=== PATIENT | female | born 1955 | race Hispanic/Latino ===

== ENCOUNTER 2018-10-12 21:41 | Emergency (ER) | payer MEDICARE ==
[~2018-10-12] VITALS: Ht 162.6 cm; Wt 78.0 kg
--- OUTSIDE RECORDS SUMMARY | 2018-10-12 21:43 | XMS REPORT ---
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 Allergies, Adverse Reactions, Alerts This patient has no known allergies or adverse reactions. Medications This patient has no known medications. Encounters Start Date/Time End Date/Time Encounter Type Admission Type Attending [facility] Care Department Encounter ID 2018-10-06 00:00:00 2018-10-06 00:00:00 Outpatient [facility] [id number] 2018-08-07 13:43:51 2018-08-07 13:43:51 Outpatient [facility] [id number] 2018-08-07 13:20:38 2018-08-07 13:20:38 Outpatient [facility] [id number] 2018-08-07 09:57:23 2018-08-07 09:57:23 Outpatient [facility] [id number] 2018-07-29 00:00:00 2018-07-29 00:00:00 Outpatient [facility] [id number] 2018-07-21 00:00:00 2018-07-21 00:00:00 Outpatient [facility] [id number] 2018-05-28 00:00:00 2018-05-28 00:00:00 Outpatient [facility] [id number] 2018-05-26 15:26:52 2018-05-26 15:26:52 Outpatient [facility] [id number] 2018-05-26 14:49:35 2018-05-26 14:49:35 Outpatient [facility] [id number] 2018-04-06 14:31:29 2018-04-06 14:31:29 Outpatient [facility] [id number] 2018-04-06 13:57:03 2018-04-06 13:57:03 Outpatient [facility] [id number] 2018-03-31 14:01:10 2018-03-31 14:01:10 Outpatient [facility] [id number] 2018-03-31 12:53:15 2018-03-31 12:53:15 Outpatient [facility] [id number] 2018-03-05 09:41:32 2018-03-05 09:41:32 Outpatient [facility] [id number] 2018-01-31 08:53:39 2018-01-31 08:53:39 Outpatient [facility] [id number] 2018-01-16 00:00:00 2018-01-16 00:00:00 Outpatient [facility] [id number] 2018-01-15 15:26:55 2018-01-15 15:26:55 Outpatient [facility] [id number] 2017-12-17 10:31:50 2017-12-17 10:31:50 Outpatient [facility] [id number] 2017-12-12 00:00:00 2017-12-12 00:00:00 Outpatient [facility] [id number] 2017-12-10 13:45:34 2017-12-10 13:45:34 Outpatient [facility] [id number] 2017-12-02 06:32:36 2017-12-02 06:32:36 Outpatient [facility] [id number] 2017-11-17 08:43:18 2017-11-17 08:43:18 Outpatient [facility] [id number] 2017-11-17 07:55:28 2017-11-17 07:55:28 Outpatient [facility] [id number] 2017-10-30 15:35:21 2017-10-30 15:35:21 Outpatient [facility] [id number] 2017-10-14 16:21:43 2017-10-14 16:21:43 Outpatient [facility] [id number] 2017-10-14 15:44:30 2017-10-14 15:44:30 Outpatient [facility] [id number] 2017-10-08 13:01:11 2017-10-08 13:01:11 Outpatient [facility] [id number] 2017-10-03 00:00:00 2017-10-03 00:00:00 Outpatient [facility] [id number] 2017-09-23 00:00:00 2017-09-23 00:00:00 Outpatient [facility] [id number] 2017-09-16 12:41:58 2017-09-16 12:41:58 Outpatient [facility] [id number] 2017-09-01 12:51:35 2017-09-01 12:51:35 Emergency [facility] [id number] 2017-08-21 14:33:53 2017-08-21 14:33:53 Outpatient [facility] [id number] 2017-08-05 10:03:26 2017-08-05 10:03:26 Outpatient [facility] [id number] 2017-07-28 07:05:09 2017-07-28 07:05:09 Outpatient [facility] [id number] 2017-07-15 16:01:05 2017-07-15 16:01:05 Outpatient [facility] [id number] 2017-07-15 15:57:33 2017-07-15 15:57:33 Outpatient [facility] [id number] 2017-07-15 15:30:37 2017-07-15 15:30:37 Outpatient [facility] [id number] 2017-07-15 14:35:17 2017-07-15 14:35:17 Outpatient [facility] [id number] 2017-07-09 16:33:03 2017-07-09 16:33:03 Outpatient [facility] [id number] 2017-05-26 08:32:47 2017-05-26 08:32:47 Outpatient [facility] [id number] 2017-05-05 00:00:00 2017-05-05 00:00:00 Outpatient [facility] [id number] 2017-04-30 00:00:00 2017-04-30 00:00:00 Outpatient [facility] [id number] 2017-04-28 00:00:00 2017-04-28 00:00:00 Outpatient [facility] [id number] 2017-04-21 11:14:33 2017-04-21 11:14:33 Outpatient [facility] [id number] 2017-04-21 09:07:10 2017-04-21 09:07:10 Outpatient [facility] [id number] 2017-04-15 08:03:54 2017-04-15 08:03:54 Outpatient [facility] [id number] 2017-03-31 09:09:07 2017-03-31 09:09:07 Outpatient [facility] [id number] 2017-03-06 09:01:10 2017-03-06 09:01:10 Outpatient [facility] [id number] 2017-02-20 09:07:26 2017-02-20 09:07:26 Outpatient [facility] [id number] 2017-02-14 12:59:49 2017-02-14 12:59:49 Outpatient [facility] [id number] 2017-02-13 10:15:30 2017-02-13 10:15:30 [facility] [id number]
[2018-10-12] MEDS ORDERED: DILTIAZEM HCL 5 MG/ML 5 ML VIAL IV ONE (22:30)
[2018-10-12] MEDS ORDERED: DILTIAZEM HCL 5 MG/ML 5 ML VIAL IV STA (22:34)
[2018-10-12] MEDS ORDERED: LISINOPRIL10 MG PO (22:56)
[2018-10-12] MEDS ORDERED: DILTIAZEM 24HR180 MG PO (22:56)
[2018-10-12] MEDS ORDERED: XARELTO10 MG PO (22:56)
[2018-10-12] MEDS ORDERED: CETIRIZINE HCL10 MG (22:56)
[2018-10-12] MEDS ORDERED: LIPITOR20 MG (22:56)
[2018-10-12] MEDS ORDERED: HYDRALAZINE HCL10 MG PO (22:56)
[2018-10-12] MEDS ORDERED: HYDROCHLOROTHIA25 MG (22:56)
--- NOTE | 2018-10-12 23:03 | Diagnostic Imaging Report ---
EXAM: XR CHEST 1 VIEW DATE: 10/12/2018 12:00 AM INDICATION: Palpitation COMPARISON: None FINDINGS: Lines and Tubes: None Heart and Mediastinum: No acute cardiomediastinal findings. Lungs and Pleura: No significant pleural effusion, pneumothorax, or focal consolidation. Bones and Soft Tissues: No acute findings. IMPRESSION: 1. No acute cardiopulmonary findings. Signed by: Dr. Fawad Zhang MD on 10/12/2018 11:00 PM
== END 2018-10-12 23:53 | disposition home or self-care (01) ==
LOC: ER 21:41 → FSED 23:53
DX: R00.2 Palpitations (principal); R07.89 Other chest pain; R42 Dizziness and giddiness; I48.2 Chronic atrial fibrillation
CPT/HCPCS: 71045; 80053; 84484; 85025; 93005; 99284

== ENCOUNTER → 2018-10-20 | Outpatient (CLI) | payer MEDICARE ==
[~2018-10-20] MED LIST: CETIRIZINE HCL10 MG; DILTIAZEM 24HR180 MG PO; HYDRALAZINE HCL10 MG PO; HYDROCHLOROTHIA25 MG; LIPITOR20 MG; LISINOPRIL10 MG PO; XARELTO10 MG PO
--- NOTE | 2018-10-20 13:08 | Diagnostic Imaging Report ---
Radiographs of the right and left shoulder - 2 views each shoulder HISTORY: Pain COMPARISON: None available. FINDINGS: Bones: No acute displaced fracture. Osseous alignment is within normal limits. Joints: Scattered degenerative change. No osseous erosion. Soft tissues: The soft tissues appear unremarkable. IMPRESSION: Scattered degenerative change. No osseous erosion. Signed by: Dr. Clement Larose M.D. on 10/20/2018 1:05 PM
== END ==
LOC: RAD 12:14
PROVIDERS: ATTEND Family Medicine
DX: M25.512 Pain in left shoulder (principal); M25.511 Pain in right shoulder

== ENCOUNTER → 2019-02-04 | Outpatient (CLI) | payer MEDICARE ==
--- NOTE | 2019-02-04 11:27 | Diagnostic Imaging Report ---
Exam: Left knee radiographs-3 views History: Left knee pain. Comparison: None. Findings: There are tricompartmental degenerative changes with joint space narrowing and prominent bony osteophyte formation, severe in the patellofemoral compartment, and moderate in the medial greater than lateral compartments. No evidence of acute fracture, malalignment, or joint effusion. Impression: Moderate to severe tricompartmental left knee osteoarthritis as above. Signed by: Dr. Rocco Augustin MD on 02/04/2019 11:24 AM
--- NOTE | 2019-02-04 11:38 | Diagnostic Imaging Report ---
Radiographs of the lumbar spine - 5 views with bilateral obliques HISTORY: Pain COMPARISON: None available. FINDINGS: Bones: No acute displaced fracture. Osseous alignment is within normal limits. Joints: Scattered degenerative change. No osseous erosion. Bilateral pars interarticularis defects at L5 with minimal grade 1 anterior listhesis of L5 with respect to S1. Soft tissues: The soft tissues appear unremarkable. IMPRESSION: Scattered degenerative change. No osseous erosion. Bilateral pars interarticularis defects at L5 with minimal grade 1 anterior listhesis of L5 with respect to S1. Signed by: Dr. Clement Larose M.D. on 02/04/2019 11:34 AM
== END ==
LOC: RAD 10:33
PROVIDERS: ATTEND Family Medicine
DX: M54.5 Low back pain (principal); M25.562 Pain in left knee
CPT/HCPCS: 72110

== ENCOUNTER 2019-07-10 11:58 | Emergency (ER) | payer MEDICARE, OTHER ==
[~2019-07-10] VITALS: Ht 160 cm; Wt 80.3 kg
[2019-07-10] MEDS ORDERED: ONDANSETRON HCL 4 MG ORAL DISINTEGRATING TAB PO NR (12:15)
[2019-07-10] MEDS ORDERED: DIAZEPAM 5 MG TAB PO ONE (12:15)
[2019-07-10] MEDS ORDERED: ONDANSETRON HCL 4 MG ORAL DISINTEGRATING TAB ONE (12:25)
[2019-07-10] MEDS ORDERED: DIAZEPAM INJ 5 MG/ML 2 ML ONE (12:26)
[2019-07-10] MEDS ORDERED: HYDROCODONE/APAP 5MG-325MG TAB ONE (12:26)
[2019-07-10] MEDS ORDERED: DIAZEPAM INJ 5 MG/ML 2 ML IM ONE (12:30)
[2019-07-10] MEDS ORDERED: HYDROCODONE/APAP 5MG-325MG TAB PO NR (12:30)
[2019-07-10] MEDS ORDERED: D5.45%NS/KCL 20MEQ 1,000 ML IV SCH (12:42)
[2019-07-10] MEDS ORDERED: DIPHENHYDRAMINE HCL INJ 50 MG/ML VIAL IV PRN (12:45)
[2019-07-10] MEDS ORDERED: ONDANSETRON HCL INJ 2MG/ML 2ML 2 MG/ML VIAL IV PRN (12:45)
[2019-07-10] MEDS ORDERED: MORPHINE SULFATE INJ 4 MG/ML INJ 1ML IV PRN (13:00)
--- NOTE | 2019-07-10 13:23 | Diagnostic Imaging Report ---
EXAM: CT Abdomen and Pelvis WITHOUT contrast INDICATION: Pain. COMPARISON: None. TECHNIQUE: Abdomen and pelvis were scanned utilizing a multidetector helical scanner from the lung base to the pubic symphysis without administration of IV contrast. Absence of intravenous contrast decreases sensitivity for detection of focal lesions and vascular pathology. Coronal and sagittal reformations were obtained. Routine protocol was performed. IV CONTRAST: None. ORAL CONTRAST: Water RADIATION DOSE: Total DLP: 792.95 mGy*cm Estimated effective dose: (DLP x 0.015 x size factor) mSv COMPLICATIONS: None FINDINGS: LINES and TUBES: None. LOWER THORAX: Unremarkable HEPATOBILIARY: No focal hepatic lesions. No biliary ductal dilation. GALLBLADDER: No radio-opaque stones or sludge. No wall thickening. SPLEEN: No splenomegaly. PANCREAS: No focal masses or ductal dilatation. ADRENALS: Mild thickening of the left adrenal gland with low attenuation suggestive of the presence of small adenomata and mild hyperplasia. KIDNEYS/URETERS: Duplicated right renal collecting system. No hydronephrosis. No cystic or solid mass lesions. No stones. GI TRACT: No abnormal distention, wall thickening, or evidence of bowel obstruction. There are diverticula within the colon without evidence of diverticulitis. Appendix is normal. PELVIC ORGANS/BLADDER: Abnormal configuration of the uterine fundus possibly due to presence of leiomyoma. LYMPH NODES: No lymphadenopathy. VESSELS: There is moderate atherosclerotic disease in the aorta and major arterial branches. PERITONEUM / RETROPERITONEUM: No free air or fluid. BONES: Bilateral L5 spondylolysis without spondylolisthesis. There are degenerative changes in the lumbar spine particularly at L2-L3.. SOFT TISSUES: Unremarkable. IMPRESSION: 1. No acute abdominal pelvic abnormality. 2. Bilateral L5 spondylolysis without spondylolisthesis. Degenerative changes in the lumbar spine particularly at L2-L3.. Signed by: Dr. Ruth Power M.D. on 07/10/2019 1:19 PM
[2019-07-10] MEDS ORDERED: PIPER-TAZ 3.375 GM / NS 50ML IV SCH (14:00)
[2019-07-10 14:08] VITALS: BP 137/73
[2019-07-10] MEDS ORDERED: FAMOTIDINE 20 MG/2 ML VIAL IV SCH (17:00)
== END 2019-07-10 14:20 | disposition home or self-care (01) ==
LOC: FSED 11:58
DX: M51.26 Other intervertebral disc displacement, lumbar region (principal); I10 Essential (primary) hypertension; I48.91 Unspecified atrial fibrillation; E78.5 Hyperlipidemia, unspecified; Z79.01 Long term (current) use of anticoagulants
CPT/HCPCS: 74176; 81003; 96372; 99283; J3360; Q0162; J2405

== ENCOUNTER → 2019-07-23 | Outpatient (CLI) | payer MEDICARE ==
--- NOTE | 2019-07-23 13:16 | Diagnostic Imaging Report ---
Examination: MRI SPINE LUMBAR WO CONTRAST History: Low back pain. Comparison studies: Lumbar spine x-ray performed February 04, 2019 Technique: Sagittal, coronal and axial T2 , sagittal T1 and STIR; axial spin density oblique. Findings: Number of lumbar vertebral bodies: Five. Alignment: Normal lordosis. No scoliosis. Soft tissues: No T2 hyperintense inflammatory changes. Posterior paraspinal soft tissues and muscles: No abnormality. Lower thoracic cord: Normal in signal and morphology. The tip of the conus is at L1. Cauda equina: No masses. No arachnoiditis. Vertebrae: No fractures, infection or neoplasm. Degenerative changes: L1-L2: Asymmetric to the right disc bulge results in mild right neural foraminal narrowing. No left foraminal or canal stenosis. L2-L3: Diffuse disc bulge results in mild bilateral neural foraminal narrowing and moderate canal stenosis. L3-L4: Mild diffuse disc bulge and mild bilateral facet arthropathy results in mild bilateral neural foraminal narrowing and mild canal stenosis. L4-L5: Diffuse disc bulge, moderate ligamentum flavum thickening and mild bilateral facet arthropathy result in moderate right neural foraminal narrowing and severe canal stenosis. L5-S1: Diffuse disc bulge and severe bilateral facet arthropathy result in severe canal stenosis. No foraminal stenosis. IMPRESSION: Degenerative changes from L1-L2 through L5-S1 with severe canal stenosis at L4-L5 and L5-S1 and moderate canal stenosis at L2-L3. Moderate right foraminal narrowing at L4-L5. Signed by: Dr. Ileana Aguirre M.D. on 07/23/2019 1:13 PM
== END ==
LOC: MRI 09:26
PROVIDERS: ATTEND Family Medicine
DX: M54.16 Radiculopathy, lumbar region (principal)
CPT/HCPCS: 72148

== ENCOUNTER 2019-10-11 13:06 | Outpatient (RCR) | payer MEDICARE | END 2019-11-06 | LOC: PT 13:06 | PROVIDERS: ATTEND Neurological Surgery | DX: M48.062 Spinal stenosis, lumbar region with neurogenic claudication (principal); M54.5 Low back pain; R26.2 Difficulty in walking, not elsewhere classified; M25.662 Stiffness of left knee, not elsewhere classified; M62.81 Muscle weakness (generalized) ==

== ENCOUNTER 2019-10-13 11:42 | Emergency (ER) | payer MEDICARE, OTHER ==
[~2019-10-13] VITALS: Ht 160 cm; Wt 84.4 kg
[2019-10-13 12:05] VITALS: BP 156/86
[2019-10-13] MEDS ORDERED: HYDROCODONE/APAP 5MG-325MG TAB PO ONE (12:15)
[2019-10-13] MEDS ORDERED: DIAZEPAM 2 MG TAB PO ONE (12:15)
--- NOTE | 2019-10-13 13:33 | Diagnostic Imaging Report ---
EXAMINATION: CT of the cervical spine without contrast HISTORY: Left-sided neck pain for the last 2 weeks radiating to the left upper extremity COMPARISON: None available TECHNIQUE: Multidetector helical axial images were obtained without contrast from the foramen magnum to T1. The images were reconstructed using bone and soft tissue algorithms and were viewed in axial, sagittal and coronal planes. Dose modulation, iterative reconstruction, and/or weight based adjustment of the mA/kV was utilized to reduce the radiation dose to as low as reasonably achievable. FINDINGS: Alignment: Straightening and mild reversal of the cervical lordosis which may be related to muscle spasm or positional. Minimal anterolisthesis of C4 on C5. Soft tissues: Normal Vertebrae: Normal height and density. No acute fracture, infection or neoplasm Degenerative changes: C1-C2: Normal C2-C3: Normal C3-C4: Uncovertebral hypertrophy from the right side. Moderate right foraminal stenoses. C4-C5: Anterior bridging osteophyte. No spinal canal or foraminal stenosis. C5-C6: Prominent uncovertebral arthroses. Severe right and moderately severe left foraminal stenoses, compression upon the exiting C6 root cannot be excluded. C6-C7: Disc osteophyte complex formation asymmetric to the left, uncovertebral and facet arthrosis mainly on the left side. Moderate right and severe left foraminal stenosis. Compression upon the exiting C7 nerve roots cannot be excluded. Mild canal narrowing. C7-T1: Normal IMPRESSION: 1. Moderate to severe degenerative foraminal stenosis at C5-C6 and C6-7, compression upon the corresponding exiting C6 and C7 nerve roots cannot be excluded. 2. Mild degenerative canal stenoses at C6-7. Note: In the appropriate setting of trauma, acute postraumatic spinal cord, vascular or ligamentous injuries cannot adequately be assessed by CT. Signed by: Dr. Carlota Anton M.D. on 10/13/2019 1:31 PM
== END 2019-10-13 13:58 | disposition home or self-care (01) ==
LOC: ER 11:42
DX: S16.1XXA Strain of muscle, fascia and tendon at neck level, initial encounter (principal); M54.12 Radiculopathy, cervical region; I10 Essential (primary) hypertension; I48.91 Unspecified atrial fibrillation; I51.9 Heart disease, unspecified
CPT/HCPCS: 72125; 99283

== ENCOUNTER 2019-12-12 18:01 | Observation (INO) | payer MEDICARE, OTHER ==
[~2019-12-12] VITALS: Ht 153.2 cm; Wt 79.4 kg
[~2019-12-12 18:01] MED LIST changes: -LIPITOR20 MG; +LIPITOR20 MG PO
--- NOTE | 2019-12-12 19:01 | NUR ---
Report to [facility]
[2019-12-12] MEDS ORDERED: IOPAMIDOL 370 MG/ML 200 ML INFUS..BTL INJ ONE (19:20)
[2019-12-12] MEDS ORDERED: SODIUM CHLORIDE 0.9% 50ML 50 ML ONE (19:20)
--- NOTE | 2019-12-12 20:35 | Diagnostic Imaging Report ---
CT angiogram of the chest History: Midsternal chest pain for one week. Technique: Multidetector non-gated helical CT angiography was carried out from the thoracic inlet to the kidneys before and following intravenous contrast administration. Thin section image collimation was utilized and 3-D images were postprocessed on a separate workstation. Parenchymal organ imaging will be limited by arterial phase of contrast administration. RADIATION DOSE: Total DLP: 1126.95 mGy*cm Estimated effective dose: (DLP x 0.015 x size factor) mSv CTDIvol has been reviewed. It is below the limits set by the Radiation Protocol Committee (RPC). Dose reduction techniques used: Automated exposure control, adjustment of the mAs and/or kVp according to patient size, standardized low-dose protocol, and/or iterative reconstruction technique. Comparison: CT abdomen/pelvis 07/10/2019 CT scan thorax: Thyroid/base of neck: Unremarkable. Pleura: No pleural effusion, pleural based mass, or pneumothorax. Heart: Normal in size with scattered coronary artery calcifications. No pericardial effusion. Lymph nodes: No enlarged axillary, supraclavicular, mediastinal, or hilar lymph nodes. Pulmonary vessels: No filling defects. Main pulmonary artery measures 2.8 cm. Pulmonary parenchyma: Well-inflated. No nodules or infiltrates. Airways: Clear. ABDOMEN: Small hiatal hernia. Visualized portions demonstrate no evidence of mass or lymphadenopathy. Stable thickening of the adrenal glands. CT angiography: 1. Aortic sinus: 3.1 cm. The valve is trileaflet. 2. Sinotubular junction: 2.7 cm 3. Proximal ascending aorta: 3.4 cm 4. Proximal aortic arch: 2.9 cm 5. Mid aortic arch: 2.3 cm 6. Distal aortic arch: 3.0 cm 7. Descending thoracic aorta: 2.5 cm 8. Aorta at the diaphragm:2.5 cm 9. Aorta at the celiac artery:2.2 cm 10. Morphology: No evidence of mural hematoma or periaortic inflammation. Scattered atherosclerotic calcifications. No displaced intimal calcifications. No dissection. There is a common origin of the anomaly artery and left common carotid artery. No stenosis of the great vessel origins. Bones: Mild degenerative changes of the spine. Bone island in the anterior body of T6. Soft tissues: Unremarkable. IMPRESSION: 1. No evidence of aortic aneurysm or dissection. Mild burden of atherosclerosis. 2. No evidence of pulmonary embolus. 3. Small hiatal hernia. 4. No pulmonary abnormalities. 5. Mild bilateral adrenal hyperplasia. Signed by: Dr. Israel Hernandez MD on 12/12/2019 8:32 PM
[2019-12-12] MEDS ORDERED: POTASSIUM CHLORIDE 20 MEQ TAB CR PO STA (20:49)
[2019-12-12] MEDS ORDERED: ONDANSETRON HCL INJ 2MG/ML 2ML 2 MG/ML VIAL IV PRN (21:00)
[2019-12-12] MEDS ORDERED: ASPIRIN 81 MG CHEW TAB PO ONE (21:00)
[2019-12-12] MEDS ORDERED: ASPIRIN 325 MG TAB PO ONE (21:00)
[2019-12-12] MEDS ORDERED: AMIODARONE HCL200 MG PO (21:13)
[2019-12-12] MEDS ORDERED: LOSARTAN POTAS100 MG PO (21:13)
[2019-12-12] MEDS ORDERED: FUROSEMIDE10 MG/1 M1 PO (21:13)
[2019-12-12] MEDS ORDERED: CARTIA XT240 MG PO (21:13)
[2019-12-12] MEDS ORDERED: LEVOTHYROXINE50 MCG PO (21:13)
[2019-12-12] MEDS ORDERED: PANTOPRAZOLE SO40 MG PO (21:13)
[2019-12-12 22:25] VITALS: BP 152/69
--- NOTE | 2019-12-12 22:30 | NUR ---
Patient arrived via EMS to room 102. Oriented to room and environment and call light. Instructed to call for assistance or on the onset of pain or SOB. Call light within reach. Teaching provided on pain and fall/safety. No issues or concerns noted. No c/o pain at this time.
[2019-12-12 22:51] VITALS: BP 152/69
[2019-12-12 23:05] VITALS: BP 152/69
[2019-12-13] VITALS (7 sets, daily range): BP systolic 135–170; BP diastolic 64–72
[2019-12-13 04:40] LABS: CREATINE KINASE 115 IU/L (29-168)
[2019-12-13] MEDS ORDERED: LASIX20 MG PO (07:04)
--- NOTE | 2019-12-13 07:23 | NUR ---
Bedside report and round completed with oncoming nurse. Patient in bed with call light within reach. No issues or concerns noted.
--- NOTE | 2019-12-13 07:24 | NUR ---
bedside shift change report received from PM nurse. pt in stable condition. will continue to monitor.
[2019-12-13] MEDS ORDERED: ASPIRIN 325 MG TAB EC PO SCH (09:00)
--- NOTE | 2019-12-13 10:55 | NUR ---
debra attending on file, Dr. Ayala who states pt is to be admitted to Dr. Mckeon. called Mike who states he will come see patient and wants Cardiology consulted on the case. Addendum: 12/13/19 at 1110 by Santino Hannon RN pt c/o chest pain; pagedestinee attending for orders.
--- NOTE | 2019-12-13 11:05 | NUR ---
paged Dr. Schwarz for new cardiology consult. left message with receptionist scheduler, Loren.
[2019-12-13] MEDS ORDERED: MORPHINE SULFATE 2 MG/ML SYR 1ML IV PRN (11:45)
[2019-12-13] MEDS ORDERED: NITROGLYCERIN 0.4 MG SUBL SL PRN (11:45)
--- NOTE | 2019-12-13 11:53 | NUR ---
Community Living Coach Dr. Adolph Vega at bedside. states pt can have her home meds and can be discharged from his standpoint and can f/u in the office in one month if sx return.
[2019-12-13] MEDS ORDERED: MAGNESIUM/ALUMINUM/SIMETHICONE 30 ML UDC PO SCH (12:15)
[2019-12-13 13:29] LABS: CREATINE KINASE 104 IU/L (29-168)
[2019-12-13 13:42] LABS: BASOPHILS % 0.6 % (0.0-1.0); EOSINOPHILS # (AUTO) 0.1 (0.0-0.4); EOSINOPHILS % 1.2 % (0.0-6.0); HEMATOCRIT 37.1 % (34.2-44.1); HEMOGLOBIN 12.5 g/dL (12.0-16.0); LYMPHOCYTES # (AUTO) 1.1 (1.0-3.2); LYMPHOCYTES % 21.7 % (18.0-39.1); MEAN CORPUSCULAR HEMOGLOBIN 27.6 pg (28-32); MEAN CORPUSCULAR HGB CONC 33.7 g/dL (31-35); MEAN CORPUSCULAR VOLUME 81.9 fL (81-99); MONOCYTES # (AUTO) 0.4 (0.2-0.8); MONOCYTES % 8.4 % (4.4-11.3); NEUTROPHILS # (AUTO) 3.5 (2.1-6.9); NEUTROPHILS % 67.7 % (38.7-80.0); PLATELET COUNT 281 x10e3/uL (140-360); RED BLOOD COUNT 4.53 x10e6/uL (3.6-5.1); RED CELL DISTRIBUTION WIDTH 15.4 % (11.7-14.4)
[2019-12-13 13:55] LABS: ANION GAP 12.6 mmol/L (8-16); BLOOD UREA NITROGEN 15 mg/dL (7-26); BUN/CREATININE RATIO 16 (6-25); CALCIUM 8.9 mg/dL (8.4-10.2); CARBON DIOXIDE 23 mmol/L (22-29); CHLORIDE 109 mmol/L (98-107); CREATININE, SERUM 0.91 mg/dL (0.57-1.11); EST GLOMERULAR FILTRATION RATE > 60 ML/MIN (60-); GLUCOSE 131 mg/dL (74-118); POTASSIUM 3.6 mmol/L (3.5-5.1); SODIUM 141 mmol/L (136-145)
[2019-12-13] MEDS: SUCRALFATE 1 GM TAB PO SCH ×2 (14:53→20:25)
[2019-12-13] MEDS: AMIODARONE HCL 200 MG TAB PO SCH (14:54)
[2019-12-13] MEDS: PANTOPRAZOLE SOD 40 MG TABEC PO SCH (16:06)
[2019-12-13] MEDS: HYDRALAZINE HCL 10 MG TAB PO SCH (16:06)
[2019-12-13] MEDS ORDERED: RIVAROXABAN 15 MG TABLET PO SCH (16:30)
--- NOTE | 2019-12-13 19:31 | NUR ---
RECEIVED REPORT FROM PREVIOUS NURSE. PATIENT SITTING IN BED. CALL LIGHT WITHIN REACH. PATIENT IN NO DISTRESS
--- NOTE | 2019-12-13 22:09 | History and Physical ---
CHIEF COMPLAINT: Chest pain. HISTORY OF PRESENT ILLNESS: This is a 64-year-old female, came into the ED [facility] with complaints of chest pain, ongoing for the last several days at home. The patient was then transferred to [facility] for further evaluation and management, in which Cardiology to be consulted. The patient reports that she has some epigastric abdominal pain, has a burning sensation that radiates up her esophagus. Denies any radiation to her left shoulder and arm or left neck area. No associated diaphoresis or vomiting. She does report having some nausea. She has never experienced anything like this before. The patient is seen and evaluated at bedside on the medical floor. She is currently doing well with no other issues at this time. Cardiology has been consulted to come and evaluate the patient. REVIEW OF SYSTEMS: Pertinent positives; epigastric abdominal pain with burning sensation, possible underlying chest pain. The rest of 14-point review of systems have been reviewed with the patient and are negative. ALLERGIES: NO KNOWN DRUG ALLERGIES. HOME MEDICATIONS: Amiodarone, atorvastatin, diltiazem, hydralazine, levothyroxine, losartan, pantoprazole, and Xarelto. PAST MEDICAL HISTORY: Atrial fibrillation, hyperlipidemia, hypertension, hypothyroidism, acid reflux. PAST SURGICAL HISTORY: Reports none. FAMILY HISTORY: Hypertension and diabetes. SOCIAL HISTORY: No drugs. No alcohol. Does not smoke. Good social support. PHYSICAL EXAMINATION: VITAL SIGNS: Temperature is 97.7, pulse 58, respiratory rate is 20, blood pressure 156/70, pulse ox 96% on room air. GENERAL: No acute distress. Alert and oriented x3. Cooperative on examination. HEENT: Head is normocephalic and atraumatic. Eyes; pupils are equal, round, and reactive to light bilaterally. Extraocular movements are intact bilaterally. Throat, no evidence of erythema or exudates in the posterior pharynx. She has poor dentition. NECK: Supple. Good range motion. PULMONARY: Clear to auscultation bilaterally. No wheezing, rales, or rhonchi. No crackles appreciated. CARDIOVASCULAR: Positive S1 and S2. No murmurs, rubs, or gallops appreciated. ABDOMEN: Soft, nondistended, and nontender to palpation. Bowel sounds present. MUSCULOSKELETAL: Strength is 5/5 throughout. No evidence of any muscle deficits on examination. No weakness appreciated. NEUROLOGIC: Cranial nerves 2 thorough 12 grossly intact. No evidence of any neurological deficits on exam. SKIN: Intact. Warm to touch. Good cap refill. PSYCHIATRIC: Normal affect and mood. EXTREMITIES: No edema. Good range of motion throughout. LABORATORY DATA: Labs show white count 5.2, hemoglobin 12.5, hematocrit 37, and platelets of 281. Chemistry; sodium 141, potassium 3.6, chloride 109, bicarb 23, anion gap of 12, BUN is 15, creatinine is 0.91, glucose 131, calcium 8.9. Troponins were negative. MICROBIOLOGY: None. IMAGING STUDIES: Chest CTA showed no evidence of aortic aneurysm or dissection. Mild burden of arthrosclerosis. No evidence of pulmonary embolism. Small hiatal hernia. No pulmonary abnormalities. IMPRESSION: 1. Atypical chest pain, likely acid reflux. 2. Epigastric abdominal pain, likely secondary to gastritis and acid reflux. 3. Atrial fibrillation. 4. Hypertension. 5. Hypothyroidism. PLAN: At this time, cardiac enzymes were negative. EKG shows no acute findings. I spoke with Cardiology personally. He reports this is atypical in nature. No further cardiac workup needed. He felt it was likely underlying GI in nature from acid reflux. Based on the patient's story, it seems to be more of an acid reflux gastritis. She was started on Protonix 40 mg twice daily, Carafate 1 g p.o. before meals and at bedtime. We will continue with rate control medications, oral Xarelto. Continue with same antihypertensive medications. Continue with levothyroxine. Xarelto for DVT prophylaxis. Discharge home tomorrow if tolerates diet well. MD KENTON Smith/MODL /[id number]
[2019-12-14 00:18] VITALS: BP 140/65
[2019-12-14 03:54] VITALS: BP 136/62
[2019-12-14 05:53] LABS: BASOPHILS % 0.5 % (0.0-1.0); EOSINOPHILS # (AUTO) 0.1 (0.0-0.4); EOSINOPHILS % 2.3 % (0.0-6.0); HEMATOCRIT 35.5 % (34.2-44.1); LYMPHOCYTES # (AUTO) 1.8 (1.0-3.2); LYMPHOCYTES % 29.6 % (18.0-39.1); MEAN CORPUSCULAR HGB CONC 33.8 g/dL (31-35); MEAN CORPUSCULAR VOLUME 82.8 fL (81-99); MONOCYTES # (AUTO) 0.5 (0.2-0.8); MONOCYTES % 8.5 % (4.4-11.3); NEUTROPHILS # (AUTO) 3.5 (2.1-6.9); NEUTROPHILS % 58.8 % (38.7-80.0); PLATELET COUNT 271 x10e3/uL (140-360); RED BLOOD COUNT 4.29 x10e6/uL (3.6-5.1); RED CELL DISTRIBUTION WIDTH 15.8 % (11.7-14.4)
[2019-12-14] MEDS ORDERED: LEVOTHYROXINE SODIUM 50 MCG TAB PO SCH (06:00)
[2019-12-14 06:11] LABS: ANION GAP 13.7 mmol/L (8-16); BLOOD UREA NITROGEN 17 mg/dL (7-26); BUN/CREATININE RATIO 21 (6-25); CALCIUM 8.8 mg/dL (8.4-10.2); CARBON DIOXIDE 27 mmol/L (22-29); CHLORIDE 107 mmol/L (98-107); CHOL/HDL RATIO 2.8 (3.0-3.6); CHOLESTEROL 152 MD/DL (0-199); CREATININE, SERUM 0.82 mg/dL (0.57-1.11); EST GLOMERULAR FILTRATION RATE > 60 ML/MIN (60-); GLUCOSE 83 mg/dL (74-118); HDL CHOLESTEROL 55 MG/DL (40-60); LDL CHOLESTEROL 83 MG/DL (60-130); POTASSIUM 3.7 mmol/L (3.5-5.1); SODIUM 144 mmol/L (136-145); TRIGLYCERIDES 68 MG/DL (0-149)
--- NOTE | 2019-12-14 07:06 | NUR ---
GAVE REPORT TO ONCOMING NURSE. CALL LIGHT WITHIN REACH. PATIENT IN BED. PATIENT IN NO PAIN OR DISTRESS.
--- NOTE | 2019-12-14 07:07 | NUR ---
received change of shift report from PM nurse. pt awake, alert, no signs of distress. no complaints at this time. will continue to monitor.
[2019-12-14 07:26] LABS: CREATINE KINASE 88 IU/L (29-168)
[2019-12-14] MEDS ORDERED: PANTOPRAZOLE SOD 40 MG TABEC PO SCH (07:30)
[2019-12-14] MEDS ORDERED: DILTIAZEM HCL ER 120 MG CAP PO SCH (07:30)
[2019-12-14 07:47] VITALS: BP 139/63
[2019-12-14 07:51] VITALS: BP 139/63
[2019-12-14] MEDS: PANTOPRAZOLE SOD 40 MG TABEC PO SCH (08:40)
[2019-12-14] MEDS: AMIODARONE HCL 200 MG TAB PO SCH (08:40)
[2019-12-14] MEDS: SUCRALFATE 1 GM TAB PO SCH ×2 (08:40→12:23)
[2019-12-14] MEDS: HYDRALAZINE HCL 10 MG TAB PO SCH (08:41)
[2019-12-14] MEDS ORDERED: ATORVASTATIN 20 MG TAB PO SCH (09:00)
[2019-12-14] MEDS ORDERED: LOSARTAN POTASSIUM 100 MG TAB PO SCH (09:00)
[2019-12-14] MEDS ORDERED: ONDANSETRON HCL 4 MG ORAL DISINTEGRATING TAB PO PRN (10:15)
[2019-12-14 12:11] VITALS: BP 159/72
[2019-12-14] MEDS ORDERED: PANTOPRAZOLE SO40 MG PO (13:35)
[2019-12-14] MEDS ORDERED: CARAFATE1 GM/10 ML PO (13:35)
[2019-12-14] MEDS ORDERED: ATORVASTATIN 40 MG TAB PO SCH (21:00)
--- NOTE | 2019-12-14 22:27 | Discharge Summary ---
FINAL DISCHARGE DIAGNOSES: 1. Atypical chest pain secondary to acid reflux. 2. Epigastric abdominal pain secondary to gastritis and acid reflux, resolved. 3. History of atrial fibrillation, on anticoagulation. 4. Hypertension. 5. Hypothyroidism. CONSULTANTS: Cardiology. VITAL SIGNS: Temperature is 97.9, pulse 55, respirations is 18, blood pressure is 159/72, pulse ox 95% on room air. LABORATORY FINDINGS: Show white count 6, hemoglobin 12, hematocrit 35, and platelets of 271. Chemistry; sodium 144, potassium 3.7, chloride 107, bicarb 27, anion gap of 13, BUN is 17, creatinine is 0.82. Troponins were all negative. Calcium 8.8. Hemoglobin A1c 5.5. LDL was 83. MICROBIOLOGY: None. IMAGING STUDIES: Chest CTA showed no evidence of aortic aneurysm or dissection. No evidence of pulmonary embolism. Small hiatal hernia. No pulmonary abnormalities. HOSPITAL COURSE: This is a 64-year-old female, who came into the ED with complaints of underlying chest pain. The patient was admitted for further evaluation. Cardiology was consulted. Cardiac enzymes were found to be negative. EKG showed no acute findings. It was felt to be atypical chest pain in nature, likely secondary to gastritis and acid reflux. While here, the patient was on Protonix p.o. b.i.d. as well as Carafate, in which her symptoms resolved. The patient was evaluated by Cardiology, reports this is atypical in nature and no further workup was needed in the hospital stay. The patient's symptoms resolved. She was tolerating diet well with no complaints. She was discharged on oral Protonix and Carafate. A GI specialist was provided for her upon discharge. On the day of discharge, vital signs were stable. Labs reviewed and stable. The patient is seen and evaluated and examined thoroughly on the day of discharge with no other complaints. The patient verbalized understanding and agreed to plan of care to follow up as an outpatient with the primary care physician in 1 week and the pharm tech in 2 weeks' time. The patient was cleared for discharge by Cardiology. MEDICATIONS: See med reconciliation form. DISPOSITION: Home. CONDITION: Stable. DIET: Heart healthy. In the event of worsening symptoms, the patient was advised to come back to the ED for further evaluation. Discharge summary took greater than 35 minutes. MD KENTON Smith/KRISTIE /[id number]
== END 2019-12-14 14:35 | disposition home or self-care (01) ==
LOC: FSED 18:01 → ERHOLD 20:48 → MED/SURG 22:15
PROVIDERS: ADMIT Internal Medicine; ATTEND Internal Medicine
DX: R07.89 Other chest pain (principal); K21.9 Gastro-esophageal reflux disease without esophagitis; K29.70 Gastritis, unspecified, without bleeding; I48.91 Unspecified atrial fibrillation; I10 Essential (primary) hypertension; E03.9 Hypothyroidism, unspecified; Z79.01 Long term (current) use of anticoagulants; K44.9 Diaphragmatic hernia without obstruction or gangrene
CPT/HCPCS: 36415 ×2; 71275; 80048 ×2; 80053; 80061; 82550 ×2; 82553 ×2; 83036; 84484 ×3; 85025 ×3; 93005 ×2; 99284; G0378 ×3; Q9967; S0164 ×2

== ENCOUNTER 2022-07-12 17:53 | Emergency (ER) | payer MEDICARE ==
[~2022-07-12] VITALS: Ht 153.2 cm; Wt 79.4 kg
[~2022-07-12 17:53] MED LIST changes: +AMIODARONE HCL200 MG PO; +CARAFATE1 GM/10 ML PO; +CARTIA XT240 MG PO; +FUROSEMIDE10 MG/1 M1 PO; +LASIX20 MG PO; +LEVOTHYROXINE50 MCG PO; +LOSARTAN POTAS100 MG PO; +PANTOPRAZOLE SO40 MG PO
[2022-07-12] MEDS ORDERED: ONDANSETRON HCL INJ 2MG/ML 2ML 2 MG/ML VIAL IV STA (18:36)
[2022-07-12] MEDS ORDERED: MECLIZINE HCL 12.5 MG TAB PO ONE (18:45)
[2022-07-12 18:58] LABS: BASOPHILS # (AUTO) 0.1 (0.0-0.1); EOSINOPHILS # (AUTO) 0.2 (0.0-0.4); EOSINOPHILS % 2.5 % (0.0-6.0); HEMOGLOBIN 11.5 g/dL (12.0-16.0); LYMPHOCYTES # (AUTO) 2.1 (1.0-3.2); LYMPHOCYTES % 30.3 % (18.0-39.1); MEAN CORPUSCULAR HEMOGLOBIN 26.6 pg (28-32); MEAN CORPUSCULAR HGB CONC 31.1 g/dL (31-35); MEAN CORPUSCULAR VOLUME 85.5 fL (81-99); MONOCYTES # (AUTO) 0.9 (0.2-0.8); MONOCYTES % 12.7 % (4.4-11.3); NEUTROPHILS # (AUTO) 3.7 (2.1-6.9); NEUTROPHILS % 52.8 % (38.7-80.0); PLATELET COUNT 352 x10e3/uL (140-360); RED BLOOD COUNT 4.33 x10e6/uL (3.6-5.1); RED CELL DISTRIBUTION WIDTH 14.6 % (11.7-14.4)
[2022-07-12 19:04] LABS: CLARITY,URINE SL CLOUDY (CLEAR); COLOR,URINE YELLOW (YELLOW); KETONES,URINE NEGATIVE (NEGATIVE); LEUKOCYTE ESTERASE ,URINE MODERATE (NEGATIVE); NITRITE,URINE NEGATIVE (NEGATIVE); PROTEIN,URINE DIPSTICK NEGATIVE (NEGATIVE); URINE UROBILINOGEN 0.2 mg/dL (0.2 - 1)
[2022-07-12 19:13] LABS: ALANINE AMINOTRANSFERASE 32 IU/L (0-55); ALBUMIN 3.7 g/dL (3.5-5.0); ALBUMIN/GLOBULIN RATIO 1.1 (0.8-2.0); ALKALINE PHOSPHATASE 81 IU/L (40-150); ANION GAP 17.1 mmol/L (8-16); BLOOD UREA NITROGEN 18 mg/dL (7-26); BUN/CREATININE RATIO 20 (6-25); CALCIUM 9.3 mg/dL (8.4-10.2); CARBON DIOXIDE 26 mmol/L (22-29); CHLORIDE 102 mmol/L (98-107); CREATINE KINASE 80 IU/L (29-168); CREATININE, SERUM 0.89 mg/dL (0.57-1.11); GLUCOSE 104 mg/dL (74-118); POTASSIUM 4.1 mmol/L (3.5-5.1); SODIUM 141 mmol/L (136-145)
[2022-07-12 19:19] LABS: BACTERIA,URINE FEW /HPF; EPITHELIAL CELLS,URINE MODERATE /LPF; RBC,URINE 0-5 /HPF (0-5)
== END 2022-07-12 22:07 | disposition other institution (70) ==
LOC: ER 18:00
DX: R42 Dizziness and giddiness (principal); R22.0 Localized swelling, mass and lump, head; R51.9 Headache, unspecified; I10 Essential (primary) hypertension; E03.9 Hypothyroidism, unspecified; E78.5 Hyperlipidemia, unspecified; K21.9 Gastro-esophageal reflux disease without esophagitis; R94.31 Abnormal electrocardiogram [ECG] [EKG]; Z86.73 Personal history of transient ischemic attack (TIA), and cerebral infarction without residual deficits; Z20.822 Contact with and (suspected) exposure to COVID-19
CPT/HCPCS: 36415; 70450; 80053; 81001; 82550; 82553; 84484; 85025; 93005; 99284; J2405; J8597; U0002